=== PATIENT | male | born 1940 | race African-American/Black ===

== ENCOUNTER → 2017-10-17 | Outpatient (CLI) | payer OTHER ==
[~2017-10-17] VITALS: Ht 170.2 cm; Wt 95.3 kg
[~2017-10-17] MED LIST: AMBIEN 5 MG TABL5 M1 PO; ASPIR 8181 MG PO; COZAAR 50 MG TA50 M2 PO; HYDROXYZINE HCL25 M1 PO; IRON325 PO; JANUVIA100 MG PO; LIPITOR 20 MG T20 M1 PO; METFORMIN HCL500 MG PO; NORVASC5 MG PO; VITAMIN B-12500 MCG PO
--- NOTE | ~2017-10-17 | P ---
[facility] [place] [address] PROCEDURE REPORT Name: CHRISTINE TRAN JR Room #: REG [employer]#: [id number] Admission: 10/17/17 Attend Phys: Fidel Emery MD Discharge: Date of : 44 Report #: [id number] THIS REPORT FOR: //name// CC: Jazmine Emery BRIEF HISTORY: The patient is a 77-year-old male with history of iron deficiency anemia, evaluate in 2010 without a specific diagnosis, he again is anemic. PREOPERATIVE DIAGNOSIS: Iron deficiency anemia. POSTOPERATIVE DIAGNOSIS: Small internal hemorrhoids. MEDICATIONS: Deep sedation with propofol per anesthesia. SPECIMEN: None. ESTIMATED BLOOD LOSS: None. PROCEDURE: Colonoscopy to cecum and terminal ileum. FINDINGS: Prior to propofol sedation, procedure of colonoscopy discussed with the patient as well as potential risks, benefits, and complications. He indicates he understands and desires to proceed. With the patient in left lateral decubitus position, digital examination was completed, which revealed no abnormalities. Subsequently, the [place] SPARK video colonoscope was introduced into the rectum, advanced under direct vision to the cecum. It is done with minimal difficulty. The cecum was identified by the ileocecal valve and the appendiceal orifice. I was able to visualize the distal segment of terminal ileum, which was inspected and noted to be unremarkable. At that point, the scope was slowly withdrawn and careful circumferential views were obtained. Upon withdrawal of the scope, the prep was noted to be excellent. The mucosa was within normal limits, normal vascular pattern, and normal light reflex. No bleeding lesions or potential bleeding lesions were seen. As we withdrew the scope through the colon, he was noted to have normal appearing mucosa. Scope was withdrawn in the rectum and upon retroflexion, small hemorrhoids were seen. No other abnormalities were seen. Scope was withdrawn. The patient tolerated the procedure well. CONDITION OF THE PATIENT UPON DISCHARGE: Following procedure, the patient drowsy, aroused, conversant and will be discharged home when fully ambulatory. INSTRUCTIONS TO THE PATIENT AND FAMILY AT THE TIME OF DISCHARGE: The patient with iron deficiency anemia. A bleeding lesion or potential bleeding lesion was [facility] [address] [place] [address] PROCEDURE REPORT Name: CHRISTINE TRAN Yoselyn Room #: [facility] [facility]#: [id number] Admission: 10/17/17 Attend Phys: Fidel Emery MD Discharge: Date of : 44 Report #: [id number] not seen on today's exam. Please see upper endoscopy report for additional details. If biopsies of the small-bowel are negative, consider M2 capsule for further evaluation of his anemia. Last colonoscopy was 6 years ago and withdrawal time from the cecum was 10 minutes and 45 seconds. By: 1209 1752 Fidel Emery MD /nt
--- NOTE | ~2017-10-17 | P ---
[facility] [place] [place] [address] PROCEDURE REPORT Name: CHRISTINE TRAN Room #: REG [facility]#: [id number] Admission: 10/17/17 Attend Phys: Fidel Emery MD Discharge: Date of : 44 Report #: [id number] THIS REPORT FOR: //name// CC: Jazmine Emery DATE OF SERVICE: 10/17/2017 BRIEF HISTORY: The patient is a 77-year-old male with recurrent iron deficiency anemia. He had previous GI evaluation 6 years ago, which was nondiagnostic. He is once again iron deficient. He has no GI complaints. He does take an aspirin daily. PREOPERATIVE DIAGNOSIS: Iron deficiency anemia. POSTOPERATIVE DIAGNOSIS: Mild diffuse gastritis. MEDICATIONS: Deep sedation with propofol per Anesthesia. SPECIMEN: Small bowel biopsies to evaluate for celiac disease and gastric biopsies to evaluate for H. pylori. ESTIMATED BLOOD LOSS: 3 mL. PROCEDURE: EGD with biopsy. FINDINGS: Prior to propofol sedation, procedure of upper endoscopy was discussed with the patient as well as potential risks and its complications. He indicates he understands and desires to proceed. DESCRIPTION OF PROCEDURE: With the patient in left lateral decubitus position, the [employer] video endoscope was inserted in the cervical esophagus under direct vision without difficulty. Examination of this organ through its entire length revealed normal esophageal mucosa down to the squamocolumnar junction. The squamocolumnar junction was inspected and noted to be unremarkable. No ulcers or erosions were seen. The scope was advanced into the stomach, was examined on end view as well as retroflexed views. There was some erythema, but no ulcers, erosions or bleeding lesions were seen. In particular, examination of the prepyloric antrum revealed intact mucosa with erythema, but no other abnormalities were identified. The pylorus, duodenal bulb and post-duodenal sweep all the way down to the third and fourth portions of duodenum was normal. There was no evidence of bleeding anywhere on this examination. Vascular ectasias were not seen today. At that point, the scope was slowly withdrawn and careful circumferential views were obtained. Biopsies obtained of the gastritis. There was no evidence of vascular ectasias, ulcers or bleeding [facility] [address] [place] [address] PROCEDURE REPORT Name: CHRISTINE TRAN Room #: REG [facility]#: [id number] Admission: 10/17/17 Attend Phys: Fidel Emery MD Discharge: Date of : 44 Report #: [id number] lesions for source of blood loss. Small bowel biopsies were obtained to evaluate for celiac disease and biopsies obtained of the gastritis. CONDITION OF THE PATIENT UPON DISCHARGE: Following the procedure, the patient was drowsy and prepared for colonoscopy. INSTRUCTIONS TO THE PATIENT AND FAMILY AT THE TIME OF DISCHARGE: We will follow up on biopsies and make further recommendations, proceed with colonoscopy at this time. By: 1141 2044 Fidel Emery MD /dragan
--- NOTE | ~2017-10-17 | S ---
[facility] [place] [address] SURGICAL PATH RPT PROCEDURE Name: JORDAN TRAN Room #: REG [facility]#: [id number] Admission: 10/17/17 Date of : 44 Discharge: Report #: [id number] Path Case #: [id number] PATHOLOGY REPORT COLLECTION DATE: 10/17/2017 RECEIVED DATE: 10/17/2017 SUBMITTING PHYS: Dr. Fidel Emery OTHER PHYS: Dr Jazmine Cohn SPECIMEN(S) RECEIVED: A.Small bowel B.Gastritis * * * * * * * * * * * * FINAL DIAGNOSIS: A. Small bowel, biopsy: - Mild to moderate chronic inflammation. - Normal villous architecture. B. Stomach, "biopsy of gastritis": - Chronic superficial gastritis, moderate, with focal acute activity. - Microorganisms morphologically consistent with Helicobacter pylori present on immunoperoxidase stain. (SKM:[facility]; 10/18/2017) PATHOLOGIST: Ramila Duran M.D. REPORT ELECTRONICALLY SIGNED BY: Ramila Duran M.D. DATE/TIME: 10/18/2017 14:06 * * * * * * * * * * * * GROSS PATHOLOGY: A. The specimen is received in formalin, labeled "Jordan Tran and biopsy of small bowel", are several mak soft tissue the aggregate measure 0.8 x 0.4 x 0.3 cm, entirely submitted in A1. B. The specimen is received in formalin, labeled "Jordan Tran and biopsy of gastritis", are several mak soft tissue the aggregate measures 0.6 x 0.4 x 0.2 cm, entirely submitted in B1. ([facility]; 10/17/2017) CLINICAL HISTORY: A- Rule out celiac B- Rule out H. pylori Anemia, history H. pylori, hemorrhoids INITIAL CPT CODE(S): A; 204[address] [facility] [address] [place] [address] SURGICAL PATH RPT PROCEDURE Name: JORDAN TRAN [id number] Admission: 10/17/17 Date of : 44 Discharge: Report #: [id number] Path Case #: [id number]; [id number], [id number] Professional services performed by [facility] at [address], [place] [address] Technical services performed by [facility] at [address] [place] [address], [facility] [address] [address]. [facility] [address] [place] [address] PHONE: [phone] DIRECTOR: Anup Dumont M.D. * * * END OF REPORT * * *
== END | disposition home or self-care (01) ==
LOC: GI 08:45
DX: D50.9 Iron deficiency anemia, unspecified (principal); K64.8 Other hemorrhoids; K29.70 Gastritis, unspecified, without bleeding
CPT/HCPCS: 62110; 62900